=== PATIENT | female | born 1935 | race Caucasian/White ===

== ENCOUNTER 2018-03-08 02:13 | Inpatient (IN) | payer OTHER ==
[~2018-03-08] VITALS: Ht 162.6 cm; Wt 71.2 kg
[~2018-03-08 02:13] MED LIST: AMLODIPINE BESYL5 M1 PO; BYSTOLIC10 M1 PO; CALTRATE 600 +1 EACH PO; DIOVAN160 MG PO; LEVOXYL75 MCG PO; SPIRIVA18 MCG INH; VITAMIN D1000 UNIT PO
--- NOTE | 2018-03-08 13:00 | Operative Report ---
Operative/Inv Procedure Report Surgery Date: 03/08/18 Name of Procedure: Robotic repair of incarcerated incisional hernia with 8 x [address] mesh Pre-Operative Diagnosis: Incarcerated incisional hernia Post-Operative Diagnosis: Same, multiple defects Estimated Blood Loss: none Surgeon/Glass Curvature Gauger: Madeleine CARRANZA,Morteza Hernandez PA-C Anesthesia: general endotracheal tube, block IV Fluids: 1100 mL crystalloid Implants: 8 x [address] mesh Drains: None Specimens: None Complications: None Condition: Excellent extubated to PACU Operative Indication: Karyna is an 82-year-old female who had a prior small bowel resection and a subsequent exploratory laparotomy for an SBO through the same incision and developed progressive bulging and discomfort there. CT showed a bowel containing 5 cm x 5 cm hernia with a mild diastases she presents for an elective robotic repair. Operative/Procedure Note Note: Patient taken to the operating room placed on the operating table supine position. Her hernia had been marked in the preop holding area. Following an awake timeout she underwent an uneventful induction of general endotracheal anesthesia had bilateral tap block performed had Venodyne boots in place, I'll rolled sheet behind her left flank and the bed flexed. Right arm was tucked and the left arm out to her side. The abdomen that was then prepped widely with DuraPrep and draped in usual sterile fashion including Ioban. She received IV Kefzol prior to skin incision and then local anesthetic was infiltrated in the course of the planned incision which was left upper quadrant subcostally. This incision was carried down to the external oblique aponeurosis and incised along the course of the fibers exposing the internal oblique which had a much better fascia on it which was then opened along its fibers to expose the thin transversus abdominis which was then opened to expose the thin transversalis which was carefully opened to gain entry into the peritoneal cavity. Stay sutures were used on the external oblique to hold the eventual port in place and a finger sweep revealed there were some adhesions medially but none laterally or superiorly or inferiorly so I was able to place and it aerocele port 12 mm and achieve and pneumoperitoneum. 8 mm 30 scope was utilized and one could see the adhesions that were palpable medially but laterally again the space was open so we placed two 8 mm working ports under direct vision laterally on the left side after for training local anesthetic. The most inferior was at the level of the ASIS while the third port was detention between the 2. The XI robot was then docked and fenestrated bipolar placed in the left hand while on the right hand a monopolar pavan was placed. Began by taking down adhesions which were extensive but mostly thin and filmy. Working medially were able to delineate the midline hernia defect which had small bowel within it as predicted by CT scan defect size was 5 x 5 cm. Small bowel was easily reduced and sharp dissection and the surrounding margin of the defect to the right side also freed of attachments of some mesentery and omentum. This revealed a second satellite defect just superior to the main defect about a centimeter in size. The falciform was then dissected off of the anterior abdominal wall for 5 cm cephalad to the superior most defect. Inferiorly at about the level of the umbilicus there were multiple defects first and of about 5 cm. All of this lysis of adhesions took about an hour and added to the time and complexity of the case warranting a 22 modifier. There was really no fat pad inferiorly or surrounding the defect other than the falciform superiorly. The margin of the fascia at the hernia edge was circumferentially incised with the monopolar pavan to make a fresh fascial edge. The rash was then closed in a running fashion using 0 the lock permanent suture. As was started approximately 3 cm cephalad to the superior most defect and the pressure lowered down to 8 mmHg to achieve a tension-free closure Now an 8 x [address] mesh was selected and placed into the space. It was then secured circumferentially with 2-0 V LOC suture absorbable. 2-0 Tycron sutures were then used at the 4 Compass points clips had been placed around the margin of the mesh for later CT identification. I pulled some of the falciform ligament up and out over the superior portion of the mesh covering about 1/8 of its surface and secured it there with a 0 Vicryl running suture. The robot was then undocked and the ports removed under direct vision with no bleeding. Fascia was closed in layered fashion with 0 Vicryl [id number] sutures beginning on the transversus muscle layer including the peritoneum, the internal oblique separately with 2 with 2 [id number] sutures and then the external oblique with a running 0 Vicryl closure. 3-0 Vicryl was used on the subcutaneous space followed by 4-0 Monocryl running subcuticular skin closure. Steri-Strips 4 x 4 and OpSite were placed. Abdominal binder was ordered. Patient tolerated the procedure well taken to the recovery room in satisfactory condition extubated all sponge and needle counts Swiss correct 2 completion of the case.
[2018-03-08 14:45] VITALS: BP 108/72
--- NOTE | 2018-03-08 16:58 | Surg Short-stay <48hrs Dis Sum ---
Visit Information Visit Dates Admission Date: 03/08/18 Discharge Date: 03/18/2018 Surgical Short Stay DC Summary Admission Diagnosis: Incarcerated incisional hernia Final Diagnosis: 1. same as above, s/p robotic repair of incarcerated incisional hernia with 8 x [address] mesh 2. SBO due to incarcerated port site hernia s/p open repair of incarcerated port site hernia with VentrioST 8 cm IPOM mesh Procedure(s): Surgery Date: 03/08/18 Name of Procedure: Robotic repair of incarcerated incisional hernia with 8 x [address] mesh Surgery Date: 03/14/18 Name of Procedure: Open repair of incarcerated port site hernia with VentrioST 8 cm IPOM mesh Summary/Significant Findings: Electively scheduled robotic repair of incarcerated incisional hernia with 8 x [address] mesh on 03/08/18 by , for an incarcerated incisional hernia. ERAS protocol followed. Hospital course complicated by SBO due to incarcerated port site hernia. Returned to the OR on 03/14/18 for an emergent open repair of incarcerated port site hernia with VentrioST 8 cm [address] mesh with Dr. Salvador. Tolerated procedure well and was transferred to the surgical floor in stable condition. Diet was advanced with return of bowel function. At the time of hospital discharge, vital signs were stable, patient was voiding spontaneously and pain was controlled with oral analgesics. Condition at Discharge: stable Discharge Disposition: home health services Discharge instructions provided to patient/family: Yes Post discharge follow-up plan: 1-2 week follow up with Dr. Salvador Copies to: Shannon CARRANZA,Hernandez Cunningham
--- NOTE | 2018-03-08 17:00 | Patient Discharge Instructions ---
Discharge Instructions General Discharge Information You were seen/treated for: Incarcerated incisional hernia You had these procedures: Surgery Date: 03/08/18 Name of Procedure: Robotic repair of incarcerated incisional hernia with 8 x [address] mesh Watch for these problems: fever>101.3, increased pain, redness/swelling/drainage, dizziness, shortness of breath, chest pains No bath, but you may shower: Yes Other wound care: ok to shower. keep incisions clean & dry. Diet Continue normal diet: Yes Recommended Diet: Regular Activity Full Activity/No Limits: No Activity Self Limited: Yes Pounds, do NOT lift more than: 10 Other activity limits: no heavy lifting. no strenuous activity. Acute Coronary Syndrome Inclusion Criteria At DC or during hospital stay patient has or had the following: ACS DIAGNOSIS No Discharge Core Measures Meds if any: Prescribed or Continued at Discharge Meds if any: NOT Prescribed or Continued at Discharge Congestive Heart Failure Inclusion Criteria At DC or during hospital stay patient has or had the following: CHF DIAGNOSIS No Discharge Core Measures Meds if any: Prescribed or Continued at Discharge Meds if any: NOT Prescribed or Continued at Discharge Cerebrovascular accident Inclusion Criteria At DC or during hospital stay patient has or had the following: CVA/TIA Diagnosis No Discharge Core Measures Meds if any: Prescribed or Continued at Discharge Meds if any: NOT Prescribed or Continued at Discharge Venous thromboembolism Inclusion Criteria VTE Diagnosis No VTE Type NONE VTE Confirmed by (Test) NONE Discharge Core Measures - Per Current guidelines, there needs to be overlap - treatment for the first 5 days of Warfarin therapy. - If discharged on Warfarin prior to 5 days of - overlap therapy, the patient will need to be - assessed for post discharge needs including - *Post discharge parental anticoagulation - *Warfarin and/or parental anticoagulation education - *Follow up date to check INR post discharge At least 5 days overlap therapy as Inpatient No Meds if any: Prescribed or Continued at Discharge Note: Overlap Therapy is Warfarin and Anticoagulant Meds if any: NOT Prescribed or Continued at Discharge
[2018-03-08] MEDS ORDERED: PERCOCET 5-3251 EACH PO (17:01)
--- NOTE | 2018-03-08 17:26 | PN- General Surgery ---
Subjective Subjective: POST-OP NOTE No complaints. Reports some abdominal discomfort. No nausea. Tolerating sips of clears. Not yet out of bed. Denies dizziness. No shortness of breath. No chest pains. Due to void this evening by 9pm. Objective Vital Signs and I&Os Vital Signs Date Time Temp Pulse Resp B/P B/P Pulse O2 O2 Flow FiO2 Mean Ox Delivery Rate 03/08 1634 Nasal 3.0L Cannula 03/08 1445 96 Nasal 2.0L Cannula 03/08 1445 97.8 74 18 108/72 96 Nasal 2.0L Cannula Intake & Output 03/08 1600 03/08 0800 03/08 0000 03/07 1600 03/07 0800 03/07 0000 Intake Total Output Total Balance Patient 157 lb 150 lb Weight Physical Exam: General - alert & oriented. comfortable. no acute distress. Face with expected puffiness (she was positioned in trendelenburg x 4 hours) Lungs - clear Cardiac - s1s2. reg Abomen - binder in place. dressings c/d/i. no drains noted. Extremities - warm bilaterally. no c/c/e. calves soft and nontender b/l. Current Medications: Current Medications Sig/Wanda Start time Last Medication Dose Route Stop Time Status Admin Acetaminophen 650 MG Q6P PRN 03/08 1515 AC PO Amlodipine Besylate 5 MG DAILY 03/09 09 AC PO Cholecalciferol 1,000 IU DAILY 03/09 09 AC PO Dextrose/Sodium 1,000 ML .[id number] 03/08 1515 AC Chloride IV Diazepam 2 MG ONCE ONE 03/08 1415 DC PO 03/08 1416 Diazepam 2 MG TID PRN 03/08 1300 AC PO Fentanyl Citrate 250 MCG .STK-MED ONE 03/08 0730 DC IM 03/08 0731 Heparin Sodium 5,000 UNIT Q8 03/08 1400 AC (Porcine) SC Levothyroxine Sodium 0.075 MG DAILY AC 03/09 07 AC PO Losartan Potassium 50 MG DAILY 03/09 09 AC PO Morphine Sulfate 2 MG Q2P PRN 03/08 1515 AC IV Morphine Sulfate 0 .STK-MED ONE 03/08 1347 DC .ROUTE Nebivolol 10 MG DAILY 03/09 09 AC PO Ondansetron HCl 4 MG Q6P PRN 03/08 1515 AC IV Oxycodone HCl 5 MG Q4-6 PRN PRN 03/08 1515 AC PO Promethazine HCl 12.5 MG Q6P PRN 03/08 1515 AC IV 03/15 1259 Tiotropium [place] 1 PUF DAILY 03/09 0900 AC INH Assessment/Plan Assessment/Plan This 82 year old female with hx htn is POD#0 s/p robotic repair of incarcerated incisional hernia with 8 x [address] mesh, for an incarcerated incisional hernia advance diet as tolerated pain control as ordered oob as tolerated IST, wean 02 as able hep sc - dvt ppx home meds ordered 23hr observation status, with expected discharge home tomorrow will d/w Core Measures Venous Thromboembolism VTE Risk Factors Surgery No Mechanical VTE Prophylaxis d/t N/A MechProphylax Ordered No VTE Pharm Prophylaxis d/t NA PharmProphylax ordered
[2018-03-08 21:47] VITALS: BP 116/64
[2018-03-09 02:00] VITALS: BP 132/70
[2018-03-09 06:00] VITALS: BP 128/68
[2018-03-09 10:42] LABS: ABSOLUTE BASOPHIL COUNT 0 /CUMM (0.0-0.2); ABSOLUTE EOSINOPHIL COUNT 0.1 /CUMM (0.0-0.7); ABSOLUTE GRANULOCYTE CT 8.1 /CUMM (1.4-6.5); ABSOLUTE LYMPH COUNT 1.8 /CUMM (1.2-3.4); ABSOLUTE MONOCYTE COUNT 0.5 /CUMM (0.10-0.60); BASOPHIL % 0.2 % (0.0-2.0); GRANULOCYTE % 77.2 % (42.2-75.2); HEMATOCRIT 36.2 % (37-47); MEAN CORPUSCULAR HGB 32.9 PG (27.0-31.0); MEAN CORPUSCULAR HGB CONC 34.1 G/DL (33.0-37.0); MEAN CORPUSCULAR VOLUME 96.7 FL (81.0-99.0); MEAN PLATELET VOLUME 6.2 FL (7.4-10.4); PLATELET COUNT 337 /CUMM (130-400); RBC DISTRIBUTION WIDTH 13.1 % (11.5-14.5); RED BLOOD CELL CT 3.75 /CUMM (4.20-5.40); WHITE BLOOD CELL COUNT 10.4 /CUMM (4.8-10.8)
--- NOTE | 2018-03-09 11:24 | PN- General Surgery ---
See Addendum Subjective Subjective: 82-year-old female status post robotic incisional hernia repair with mesh. He is postop day #1 she complains of sore throat fullness in her neck and moderate facial edema after her surgery. I clearly related to her position in the operating room. Denies any chest pain shortness of breath or difficulty swallowing. He has had some nausea however has not vomited. Review of Systems: And is alert and oriented sitting up right in bed. HEENT no posterior pharynx edema Base with moderate periorbital edema and generalized swelling Supple nontender with active range of motion is some subcutaneous emphysema noted Chest is clear to auscultation symmetric without rales rhonchi or wheeze Abdomen is rounded with distention portal sites are clean dry and intact there is tenderness throughout Bilateral lower extremities are free of edema and calves are soft bilaterally Admission Lab Results I reviewed the following labs: Laboratory Tests 03/09 0915 Chemistry Sodium (137 - 145 mmol/L) 127 L Potassium (3.5 - 5.1 mmol/L) 4.1 Chloride (98 - 107 mmol/L) 94 L Carbon Dioxide (22 - 30 mmol/L) 24 Anion Gap (5 - 16) 9 BUN (7 - 17 mg/dL) 14 Creatinine (0.5 - 1.0 mg/dL) 1.1 H Estimated GFR (>60 ml/min) 48 L BUN/Creatinine Ratio (7 - 25 %) 12.7 Hematology CBC w Diff NO MAN DIFF REQ WBC (4.8 - 10.8 /CUMM) 10.4 RBC (4.20 - 5.40 /CUMM) 3.75 L Hgb (12.0 - 16.0 G/DL) 12.4 Hct (37 - 47 %) 36.2 L MCV (81.0 - 99.0 FL) 96.7 MCH (27.0 - 31.0 PG) 32.9 H MCHC (33.0 - 37.0 G/DL) 34.1 RDW (11.5 - 14.5 %) 13.1 Plt Count (130 - 400 /CUMM) 337 MPV (7.4 - 10.4 FL) 6.2 L Gran % (42.2 - 75.2 %) 77.2 H Lymphocytes % (20.5 - 51.1 %) 17.3 L Monocytes % (1.7 - 9.3 %) 4.3 Eosinophils % (0 - 5 %) 1.0 Basophils % (0.0 - 2.0 %) 0.2 Absolute Granulocytes (1.4 - 6.5 /CUMM) 8.1 H Absolute Lymphocytes (1.2 - 3.4 /CUMM) 1.8 Absolute Monocytes (0.10 - 0.60 /CUMM) 0.5 Absolute Eosinophils (0.0 - 0.7 /CUMM) 0.1 Absolute Basophils (0.0 - 0.2 /CUMM) 0 Objective Vital Signs and I&Os Vital Signs Date Time Temp Pulse Resp B/P B/P Pulse O2 O2 Flow FiO2 Mean Ox Delivery Rate 03/09 09 85 130/72 03/09 0918 85 18 130/72 03/09 0918 85 130/72 03/09 0800 96 Nasal 1.0L Cannula 03/09 0600 97.8 87 18 128/68 97 03/09 0200 98.2 84 20 132/70 96 03/09 0000 94 Nasal 1.0L Cannula 03/08 2147 97.7 61 20 116/64 94 Nasal 2.0L Cannula 03/08 1731 4.0 03/08 1634 Nasal 3.0L Cannula 03/08 1500 95 Nasal 2.0L Cannula 03/08 1445 96 Nasal 2.0L Cannula 03/08 1445 97.8 74 18 108/72 96 Nasal 2.0L Cannula Intake & Output 03/09 1600 03/09 0800 03/09 0000 03/08 1600 03/08 0800 03/08 0000 Intake Total 420 1400 Output Total 650 0 Balance -378 254 3709 Intake, IV 300 800 Intake, Oral 120 600 Number 0 Bowel Movements Output, Urine 650 0 Patient 157 lb 157 lb Weight Assessment/Plan Assessment/Plan Assessment and plan postop day #[id number] female with moderate facial edema after having an elective robotic incisional hernia repair. She does have a sore throat with facial edema there is evidence of subcutaneous emphysema noted on exam we will wait a chest x-ray currently she is tolerating by mouth's and feels comfortable. She will be out of bed to chair is on heparin subcutaneous for DVT prophylaxis
[2018-03-09 14:00] VITALS: BP 126/70
--- NOTE | 2018-03-09 15:16 | RADIOLOGY REPORT ---
EXAMINATION: XR PORTABLE CHEST CLINICAL INFORMATION: Subcutaneous emphysema. Postop. COMPARISON: None TECHNIQUE: Portable frontal view of the chest was obtained. 2:30 PM FINDINGS: There is extensive subcutaneous emphysema. This limits assessment of the chest including for pneumothorax and pneumomediastinum. No acute change of the chest otherwise seen. Lungs appear to be clear. No significant pulmonary vascular congestion. The cardiac and mediastinal contours are normal. There are calcifications of aorta. No acute osseous abnormality. Orthopedic anchor in the right humeral head. IMPRESSION: Extensive subcutaneous emphysema of the chest.
[2018-03-09 22:38] VITALS: BP 138/69
[2018-03-10 06:44] VITALS: BP 146/72
--- NOTE | 2018-03-10 08:50 | PN- General Surgery ---
Yari Cardenas 03/10/18 0845: Subjective Subjective: Seen this morning still lying in bed she had 2 episodes of vomiting this morning and was uncomfortable overnight. She still has abdominal distention generalized discomfort. Patient reports not passing gas. No fevers or chills and her facial swelling has diminished. Objective Vital Signs and I&Os Vital Signs Date Time Temp Pulse Resp B/P B/P Pulse O2 O2 Flow FiO2 Mean Ox Delivery Rate 03/10 0644 98.3 93 18 146/72 94 03/10 0000 94 Nasal 1.0L Cannula 03/09 2238 98.1 86 18 138/69 95 Nasal 2.0L Cannula 03/09 1600 96 Nasal 1.0L Cannula 03/09 1400 98.0 80 18 126/70 96 Nasal 1.0L Cannula 03/09 0918 85 130/72 03/09 0918 85 18 130/72 03/09 0918 85 130/72 Intake & Output 03/10 1600 03/10 0800 03/10 0000 03/09 1600 03/09 0800 03/09 0000 Intake Total 720 1097 1080 420 Output Total 160 300 500 650 Balance 560 797 580 -650 420 Intake, IV 600 497 600 300 Intake, Oral 120 600 480 120 Number 0 0 Bowel Movements Output, 160 Emesis Output, Urine 300 500 650 Patient 157 lb Weight Physical Exam: patient is lying in bed abdominal binder is in place she is experiencing symptoms of nausea Chest is clear to auscultation symmetric without rales rhonchi or wheeze Is regular rhythm without murmurs rubs gallops Diminished distended portal sites are clean dry and intact He has generalized abdominal pain Bilateral lower extremities Are soft bilaterally distal pulses are intact. Admission Lab Results I reviewed the following labs: Laboratory Tests 03/09 915 Chemistry Sodium (137 - 145 mmol/L) 127 L Potassium (3.5 - 5.1 mmol/L) 4.1 Chloride (98 - 107 mmol/L) 94 L Carbon Dioxide (22 - 30 mmol/L) 24 Anion Gap (5 - 16) 9 BUN (7 - 17 mg/dL) 14 Creatinine (0.5 - 1.0 mg/dL) 1.1 H Estimated GFR (>60 ml/min) 48 L BUN/Creatinine Ratio (7 - 25 %) 12.7 Hematology CBC w Diff NO MAN DIFF REQ WBC (4.8 - 10.8 /CUMM) 10.4 RBC (4.20 - 5.40 /CUMM) 3.75 L Hgb (12.0 - 16.0 G/DL) 12.4 Hct (37 - 47 %) 36.2 L MCV (81.0 - 99.0 FL) 96.7 MCH (27.0 - 31.0 PG) 32.9 H MCHC (33.0 - 37.0 G/DL) 34.1 RDW (11.5 - 14.5 %) 13.1 Plt Count (130 - 400 /CUMM) 337 MPV (7.4 - 10.4 FL) 6.2 L Gran % (42.2 - 75.2 %) 77.2 H Lymphocytes % (20.5 - 51.1 %) 17.3 L Monocytes % (1.7 - 9.3 %) 4.3 Eosinophils % (0 - 5 %) 1.0 Basophils % (0.0 - 2.0 %) 0.2 Absolute Granulocytes (1.4 - 6.5 /CUMM) 8.1 H Absolute Lymphocytes (1.2 - 3.4 /CUMM) 1.8 Absolute Monocytes (0.10 - 0.60 /CUMM) 0.5 Absolute Eosinophils (0.0 - 0.7 /CUMM) 0.1 Absolute Basophils (0.0 - 0.2 /CUMM) 0 Assessment/Plan Assessment/Plan Postoperative day #2 after robotic incisional hernia repair with mesh. DVT prophylaxis she is on heparin subcutaneous Subcutaneous emphysema is resolving Nausea and vomiting postop likely related to ileus abdomial film ordered and she will remain on ice chips. I've also ordered additional nausea medication she will be on Tylenol and no heavy narcotics she is on a bowel regime. Out of bed to chair and ambulation with assistance. Core Measures Venous Thromboembolism VTE Risk Factors Surgery No Mechanical VTE Prophylaxis d/t N/A MechProphylax Ordered No VTE Pharm Prophylaxis d/t NA PharmProphylax ordered Morteza Salvador MD 03/10/18 1403: Attending MD Review Statement Attending Statement Attending Assessment/Plan: N and V s flatus. Crepitus better. Suspect ileus. Hasnt been OOB yet. AXR planned. If N/V continues may need NGtube but hopefully manageable w zofran and OOB and minimizing narcotics.
[2018-03-10 14:54] VITALS: BP 145/90
--- NOTE | 2018-03-10 16:00 | RADIOLOGY REPORT ---
EXAMINATION: XR ABDOMEN CLINICAL INDICATION: Abdominal pain and nausea. COMPARISON: CT abdomen and pelvis dated to. TECHNIQUE: AP view of the abdomen. FINDINGS: Imaging limited due to overlapping dressing material, and the rightmost abdomen is excluded from the [id number]. The stomach is distended. There multiple dilated small bowel loops. There is a relative paucity of gas within the colon. Gas is identified, however, the level of the rectum. Abdominal and pelvic surgical clips are seen. No acute osseous abnormality is seen. There has been a prior left hip arthroplasty. There is no acute osseous abnormality. IMPRESSION: Findings are consistent with a distal small bowel obstruction versus adynamic ileus. Evaluation is significantly limited, as detailed. Consider imaging follow-up to resolution.
[2018-03-10 21:39] VITALS: BP 124/82
[2018-03-11 06:59] VITALS: BP 136/74
--- NOTE | 2018-03-11 07:51 | PN- General Surgery ---
See Addendum Subjective Subjective: No events overnight. Patient states to not be feeling well this am. Admits to ongoing nausea, only able to tolerate minimal sips of clears. Admits to small amount of emesis this am. Denies any abdominal pain, not taking any narcotics. Denies any fevers, chills, chest pain, or SOB. Voiding freely. Denies passing flatus. Objective Vital Signs and I&Os Vital Signs Date Time Temp Pulse Resp B/P B/P Pulse O2 O2 Flow FiO2 Mean Ox Delivery Rate 03/11 0659 97.9 94 18 136/74 95 03/11 0000 92 Nasal 1.0L Cannula 03/10 2139 98.5 100 18 124/82 92 03/10 1600 94 Nasal 1.0L Cannula 03/10 1454 98.3 97 18 145/90 97 Room Air 03/10 1041 84 130/72 03/10 1040 84 18 130/72 03/10 0800 94 Nasal 1.0L Cannula Intake & Output 03/11 0800 03/11 0000 03/10 1600 03/10 0800 03/10 0000 03/09 1600 Intake Total 720 530 228 589 1593 1080 Output Total 600 30 700 160 300 500 Balance 120 500 -40 560 797 580 Intake, IV 600 310 600 600 497 600 Intake, Oral 120 220 60 120 600 480 Number 0 0 Bowel Movements Output, 30 300 160 Emesis Output, Urine 600 0 400 300 500 Physical Exam: Afebrile, VSS. Cardiac: RRR Pulmonary: CTAB, crepitus improved. Abdominal: Incisions c/d/i. + hypoactive BS. Softly distended, minimal incisional tenderness to palpation. No rebound or guarding. Non peritoneal. Assessment/Plan Assessment/Plan A/P: 82 y/o female POD # 3 s/p robotic incisional hernia repair with mesh complicated by post operative ileus. Tolerating minimal sips of clears but with ongoing nausea. No flatus. - Continue clears as tolerated this am - Continue to limit narcotics - Talked with patient about importance of getting OOB and ambulating - Encourage IS - Antiemetics prn nausea - Home medications ordered - Follow up am labs - DVT ppx - HSQ - will d/w Dr. Salvador Core Measures Venous Thromboembolism VTE Risk Factors Surgery No Mechanical VTE Prophylaxis d/t N/A MechProphylax Ordered No VTE Pharm Prophylaxis d/t NA PharmProphylax ordered
[2018-03-11 08:24] LABS: ABSOLUTE BASOPHIL COUNT 0 /CUMM (0.0-0.2); ABSOLUTE EOSINOPHIL COUNT 0.1 /CUMM (0.0-0.7); ABSOLUTE GRANULOCYTE CT 10.7 /CUMM (1.4-6.5); ABSOLUTE LYMPH COUNT 1.4 /CUMM (1.2-3.4); ABSOLUTE MONOCYTE COUNT 0.7 /CUMM (0.10-0.60); BASOPHIL % 0.2 % (0.0-2.0); EOSINOPHIL % 1.1 % (0-5); GRANULOCYTE % 82.8 % (42.2-75.2); HEMATOCRIT 39.5 % (37-47); MEAN CORPUSCULAR HGB 33.7 PG (27.0-31.0); MEAN CORPUSCULAR VOLUME 96.5 FL (81.0-99.0); MEAN PLATELET VOLUME 6.6 FL (7.4-10.4); PLATELET COUNT 390 /CUMM (130-400); RBC DISTRIBUTION WIDTH 12.7 % (11.5-14.5); RED BLOOD CELL CT 4.09 /CUMM (4.20-5.40); WHITE BLOOD CELL COUNT 12.9 /CUMM (4.8-10.8)
[2018-03-11 15:12] VITALS: BP 148/78
[2018-03-11 21:33] VITALS: BP 138/70
[2018-03-12 06:12] VITALS: BP 138/86
--- NOTE | 2018-03-12 08:08 | PN- General Surgery ---
See Addendum Subjective Subjective: Patient states she can barely tolerate ice chips, she reports nausea with clears. She denies passing flatus, still reports having crepitus, which has been receeding, per the patient. She reports her face still feels puffy. Pain is controlled. She offers no other complaints. Objective Vital Signs and I&Os Vital Signs Date Time Temp Pulse Resp B/P B/P Pulse O2 O2 Flow FiO2 Mean Ox Delivery Rate 03/12 0815 90 138/86 03/12 0813 90 138/86 03/12 0812 90 138/86 03/12 0612 99.0 90 22 138/86 96 Nasal 2.0L Cannula 03/12 0034 94 Nasal 2.0L Cannula 03/12 0000 94 Nasal 1.0L Cannula 03/11 2133 98.2 93 18 138/70 93 Nasal 2.0L Cannula 03/11 1512 98.1 92 18 148/78 95 Nasal Cannula 03/11 1511 92 148/78 03/11 1510 92 148/78 Intake & Output 03/12 1600 03/12 0800 03/12 0000 03/11 1600 03/11 0800 03/11 0000 Intake Total 1130 225 100 720 530 Output Total 300 900 70 600 30 Balance 830 -675 30 120 500 Intake, IV 650 225 600 310 Intake, Oral 480 100 120 220 Number 0 Bowel Movements Output, 70 30 Emesis Output, Urine 300 900 600 0 Physical Exam: Gen - resting comfortably in nad Cardiac - S1S2, RRR Lungs - CTAB, crepitus noted on anterior aspect extendeding to her face, right shoulder and down her left arm Abdominal - Softly distended, incisions c/d/i, faint BS, appropriately tender sandi-incisional tenderness no rebound or guarding Ext - alps in place, no edema or calf tenderness Current Medications: Current Medications Sig/Wanda Start time Last Medication Dose Route Stop Time Status Admin Acetaminophen 1,000 MG Q6P PRN 03/10 900 AC 03/10 N/A 1 UNIT IV 0933 Amlodipine Besylate 5 MG DAILY 03/09 900 AC 03/12 PO 0813 Calcium Carbonate 500 MG DAILY PRN 03/09 0330 AC 03/09 PO 0440 Cholecalciferol 1,000 IU DAILY 03/09 900 AC 03/12 PO 0814 Dextrose/Sodium 1,000 ML Q13H 03/11 1100 AC 03/11 Chloride IV 2242 Dextrose/Sodium 1,000 ML .[id number] 03/08 1515 DC 03/11 Chloride IV 0605 Diazepam 2 MG TID PRN 03/08 1300 AC PO Diphenhydramine HCl 25 MG .STK-MED ONE 03/11 2115 DC PO 03/11 2116 Diphenhydramine HCl 25 MG AT BEDTIME PRN 03/11 1445 AC 03/11 PO 211 Heparin Sodium 5,000 UNIT Q8 03/08 1400 AC 03/12 (Porcine) SC 0519 Levothyroxine Sodium 0.075 MG DAILY AC 03/09 0700 AC 03/12 PO 0519 Losartan Potassium 50 MG DAILY 03/09 0900 AC 03/12 PO 0812 Morphine Sulfate 2 MG Q4-6 PRN PRN 03/08 1730 AC IV Morphine Sulfate 2 MG Q2P PRN 03/08 1515 AC IV Nebivolol 10 MG DAILY 03/09 0900 AC 03/12 PO 0815 Ondansetron HCl 4 MG .STK-MED ONE 03/11 2119 DC IM 03/11 2120 Ondansetron HCl 4 MG Q6P PRN 03/08 1515 AC 03/11 IV 2121 Oxycodone HCl 5 MG Q4-6 PRN PRN 03/08 1515 AC PO Patient Medication 1 ED ONE ONE 03/11 1500 DC 03/11 Teaching ED 03/11 1501 1510 Promethazine HCl 12.5 MG Q6P PRN 03/08 1515 AC 03/12 IV 03/15 1259 0205 Tiotropium Jewett 1 PUF DAILY 03/09 0900 AC 03/12 INH 0813 Results Last 48 Hours of Labs: Laboratory Tests 03/12 03/11 0743 0706 Chemistry Sodium (137 - 145 mmol/L) 129 L 126 L Potassium (3.5 - 5.1 mmol/L) 3.9 4.0 Chloride (98 - 107 mmol/L) 97 L 92 L Carbon Dioxide (22 - 30 mmol/L) 23 26 Anion Gap (5 - 16) 9 7 BUN (7 - 17 mg/dL) 10 Creatinine (0.5 - 1.0 mg/dL) 0.8 Estimated GFR (>60 ml/min) > 60 BUN/Creatinine Ratio (7 - 25 %) 12.5 Hematology CBC w Diff NO MAN DIFF REQ NO MAN DIFF REQ WBC (4.8 - 10.8 /CUMM) 8.7 12.9 H RBC (4.20 - 5.40 /CUMM) 4.20 4.09 L Hgb (12.0 - 16.0 G/DL) 13.6 13.8 Hct (37 - 47 %) 40.7 39.5 MCV (81.0 - 99.0 FL) 97.1 96.5 MCH (27.0 - 31.0 PG) 32.3 H 33.7 H MCHC (33.0 - 37.0 G/DL) 33.3 35.0 RDW (11.5 - 14.5 %) 12.7 12.7 Plt Count (130 - 400 /CUMM) 435 H 390 MPV (7.4 - 10.4 FL) 6.4 L 6.6 L Gran % (42.2 - 75.2 %) 66.3 82.8 H Lymphocytes % (20.5 - 51.1 %) 19.3 L 10.7 L Monocytes % (1.7 - 9.3 %) 11.2 H 5.2 Eosinophils % (0 - 5 %) 2.8 1.1 Basophils % (0.0 - 2.0 %) 0.4 0.2 Absolute Granulocytes (1.4 - 6.5 /CUMM) 5.8 10.7 H Absolute Lymphocytes (1.2 - 3.4 /CUMM) 1.7 1.4 Absolute Monocytes (0.10 - 0.60 /CUMM) 1.0 H 0.7 H Absolute Eosinophils (0.0 - 0.7 /CUMM) 0.2 0.1 Absolute Basophils (0.0 - 0.2 /CUMM) 0 0 Assessment/Plan Assessment/Plan 82 F POD 4 s/p robotic incisional hernia repair with mesh complicated by post operative ileus, no return of bowel function and crepitus, improving Cont sips/ice as tolerated, IVF Pain regimen, limit narcotics Antiemetics prn Home meds on board DVT ppx - hsq Follow up AXR Encourage IS oob ambulation Will d/w Dr. Salvador Core Measures Venous Thromboembolism VTE Risk Factors Surgery No Mechanical VTE Prophylaxis d/t N/A MechProphylax Ordered No VTE Pharm Prophylaxis d/t NA PharmProphylax ordered
[2018-03-12 08:25] LABS: ABSOLUTE BASOPHIL COUNT 0 /CUMM (0.0-0.2); ABSOLUTE EOSINOPHIL COUNT 0.2 /CUMM (0.0-0.7); ABSOLUTE GRANULOCYTE CT 5.8 /CUMM (1.4-6.5); ABSOLUTE LYMPH COUNT 1.7 /CUMM (1.2-3.4); BASOPHIL % 0.4 % (0.0-2.0); EOSINOPHIL % 2.8 % (0-5); GRANULOCYTE % 66.3 % (42.2-75.2); HEMATOCRIT 40.7 % (37-47); MEAN CORPUSCULAR HGB 32.3 PG (27.0-31.0); MEAN CORPUSCULAR HGB CONC 33.3 G/DL (33.0-37.0); MEAN CORPUSCULAR VOLUME 97.1 FL (81.0-99.0); MEAN PLATELET VOLUME 6.4 FL (7.4-10.4); PLATELET COUNT 435 /CUMM (130-400); RBC DISTRIBUTION WIDTH 12.7 % (11.5-14.5); WHITE BLOOD CELL COUNT 8.7 /CUMM (4.8-10.8)
[2018-03-12 14:00] VITALS: BP 124/80
--- NOTE | 2018-03-12 14:39 | RADIOLOGY REPORT ---
EXAMINATION: XR ABDOMEN CLINICAL INDICATION: Nausea, inability to tolerate diet. Presumptive diagnosis of postoperative ileus. Status post robotic hernia repair with mesh placement 03/08/2018. COMPARISON: [facility] dated 03/10/2018. TECHNIQUE: AP view of the abdomen performed on 2 images. FINDINGS: Again seen is significant gaseous distention of bowel loops in the abdomen, unchanged when compared to the prior exam. Small bowel loops measure up to 8 cm in diameter. There is gas seen down to the rectal level and findings are consistent with clinical impression of postoperative ileus. The colon appears to be decompressed. Extensive emphysematous changes are seen in the overlying soft tissues, similar to the previous exam. On single supine view, the presence of free air is difficult to exclude. There is a curvilinear featureless lucency seen surrounding a mid abdominal loop of bowel, consistent with free air in the abdomen. Portions of a total left hip arthroplasty are imaged. Some kenneth are seen overlying the abdomen and pelvis. Osteopenia is seen with suspicion of compression deformities in the lower thoracic and upper lumbar spine. Atherosclerotic calcifications of the aortic bifurcation and iliofemoral vessels is noted. IMPRESSION: 1. Abnormal gaseous distention of small bowel loops in the mid abdomen is seen, unchanged from prior exam. There is free air in the abdomen along with extensive subcutaneous emphysema seen in the soft tissues. Findings may be explained by postoperative ileus and expected free air in a recent postoperative situation. However, close clinical correlation is requested. Given the degree of small bowel distention, the patient is at risk for small bowel perforation. 2. Extensive subcutaneous emphysema again noted, consistent with postoperative complication. Extensive subcutaneous emphysema is also seen on portable chest x-ray from 03/09/2018. This critical result was discussed with SYED Hernandez 03/12/2018, 2:30 PM and it was ascertained that the content and urgency of this report was understood at the time of direct communication.
[2018-03-12 22:00] VITALS: BP 120/70
[2018-03-13 06:24] VITALS: BP 152/80
--- NOTE | 2018-03-13 08:04 | PN- General Surgery ---
See Addendum Subjective Subjective: 82-year-old female status post robotic incisional hernia repair with mesh is postop day #5. She is very sleepy this morning but arousable. Her night was unremarkable with the NG tube putting out approximately 750 ML's. No bowel sounds yet and no flatus pain is controlled on current regime Review of Systems: No fevers or chills no wound drainage no shortness of breath or chest pain Objective Vital Signs and I&Os Vital Signs Date Time Temp Pulse Resp B/P B/P Pulse O2 O2 Flow FiO2 Mean Ox Delivery Rate 03/13 0624 98.8 84 20 152/80 97 05/ 0000 94 Nasal 1.0L Cannula 03/12 2200 98.6 82 18 120/70 97 Nasal 2.0L Cannula 03/12 1400 98.4 85 20 124/80 93 Nasal 1.0L Cannula 03/12 0815 90 138/86 03/12 0813 90 138/86 03/12 0812 90 138/86 Intake & Output 03/13 1600 03/13 0800 03/13 0000 03/12 1600 03/12 0800 03/12 0000 Intake Total 840 60 695 1130 225 Output Total 689 021 5323 300 900 Balance 440 -290 -1055 830 -675 Intake, IV 600 575 650 225 Intake, Oral 240 60 120 480 Number 0 Bowel Movements Output, 011 184 9182 Gastric Drainage Output, Urine 250 300 900 On physical examination she still has a moderate amount of facial edema the subcutaneous emphysema is diminishing. Neck is supple neck with no airway issues Chest is clear to auscultation symmetric without rales rhonchi or wheeze Heart is regular rate and rhythm without murmurs rubs gallops Abdomen is rounded with distention and generalized soreness no localized tenderness no bowel sounds heard Bilateral lower extremities are without calf pain or edema Assessment/Plan Assessment/Plan 82-year-old female postop day 5 status post robotic incisional hernia repair with mass with a past medical history significant for hypertension hypothyroidism COPD and hyperlipidemia now with ileus postoperatively. NG tube is in place still with moderate outputs of 750 ML's overnight. As of now her bowels are not progressing. We will continue her on NG tube suction allowing her to have some ice chips. Out of bed to chair. She is on heparin for DVT prophylaxis. We will hold most narcotics at this time to facilitate early bowel function return Core Measures Venous Thromboembolism VTE Risk Factors Surgery No Mechanical VTE Prophylaxis d/t N/A MechProphylax Ordered No VTE Pharm Prophylaxis d/t NA PharmProphylax ordered
[2018-03-13 14:55] VITALS: BP 118/72
[2018-03-13 22:16] VITALS: BP 122/68
[2018-03-14 06:39] VITALS: BP 104/58
--- NOTE | 2018-03-14 07:46 | PN- General Surgery ---
See Addendum Subjective Subjective: Patient states she slept well overnight, 2 episodes of pain, which have resolved. Denies passing flatus or moving her bowels. She reports crepitus is improving per the patient. She denies nausea or vomiting. She offers no other complaints. Objective Vital Signs and I&Os Vital Signs Date Time Temp Pulse Resp B/P B/P Pulse O2 O2 Flow FiO2 Mean Ox Delivery Rate 03/14 0639 97.7 77 20 104/58 93 Nasal 2.0L Cannula 03/14 0000 Nasal 1.0L Cannula 03/13 2216 98.4 75 20 122/68 94 Nasal Cannula 03/13 1600 96 Nasal 1.0L Cannula 03/13 1455 97.9 83 20 118/72 95 Nasal 2.0L Cannula 03/13 1000 84 152/80 03/13 1000 84 152/80 03/13 1000 84 152/80 03/13 0800 95 Nasal 1.0L Cannula Intake & Output 03/14 0800 / 0000 03/13 1600 / 0800 / 0000 03/12 1600 Intake Total 520 935 840 60 695 Output Total 1200 1450 678 018 0395 Balance -680 -515 440 -290 -1055 Intake, IV 400 575 600 575 Intake, Oral 120 360 240 60 120 Number 0 0 0 Bowel Movements Output, 1200 1000 224 790 0553 Gastric Drainage Output, Urine 450 250 Patient 157 lb Weight Physical Exam: Gen - resting comfortably in nad HEENT - NGT in place with bilious material, 1600 cc in last shift Cardiac - S1S2, RRR Lungs - CTAB, crepitus noted on anterior aspect extendeding to her face, right shoulder and down her left arm, improving Abdominal - Softly distended, incisions c/d/i, absent bs, appropriately tender sandi-incisional tenderness no rebound or guarding Ext - alps in place, no edema or calf tenderness Assessment/Plan Assessment/Plan 82 F POD 6 s/p robotic incisional hernia repair with mesh complicated by post operative ileus, no return of bowel function and crepitus, improving Bowel rest, NGT, IVF Pain regimen, limit narcotics Antiemetics prn Home meds on board DVT ppx - hsq Follow up AXR, labs Encourage IS oob ambulation Will d/w Dr. Salvador Core Measures Venous Thromboembolism VTE Risk Factors Surgery No Mechanical VTE Prophylaxis d/t N/A MechProphylax Ordered No VTE Pharm Prophylaxis d/t NA PharmProphylax ordered
[2018-03-14 09:44] LABS: ABSOLUTE BASOPHIL COUNT 0 /CUMM (0.0-0.2); ABSOLUTE EOSINOPHIL COUNT 0.2 /CUMM (0.0-0.7); ABSOLUTE GRANULOCYTE CT 3.9 /CUMM (1.4-6.5); ABSOLUTE LYMPH COUNT 1.4 /CUMM (1.2-3.4); ABSOLUTE MONOCYTE COUNT 1.4 /CUMM (0.10-0.60); BASOPHIL % 0.3 % (0.0-2.0); EOSINOPHIL % 3.5 % (0-5); GRANULOCYTE % 56.5 % (42.2-75.2); HEMATOCRIT 38.1 % (37-47); MEAN CORPUSCULAR HGB 32.5 PG (27.0-31.0); MEAN CORPUSCULAR HGB CONC 33.5 G/DL (33.0-37.0); MEAN CORPUSCULAR VOLUME 97.3 FL (81.0-99.0); MEAN PLATELET VOLUME 6.8 FL (7.4-10.4); PLATELET COUNT 399 /CUMM (130-400); RBC DISTRIBUTION WIDTH 13.3 % (11.5-14.5); RED BLOOD CELL CT 3.92 /CUMM (4.20-5.40)
--- NOTE | 2018-03-14 13:24 | CT SCAN REPORT ---
EXAMINATION: CT ABDOMEN AND PELVIS WITH ORAL CONTRAST ONLY CLINICAL INFORMATION: Nausea and vomiting with question of ileus versus small bowel. COMPARISON: [facility] 03/12/[address] abdomen and pelvis from [facility] dated 01/03/2018. TECHNIQUE: Multidetector volumetric imaging was performed from the superior aspect of the liver through the pubic symphysis following administration of oral contrast. Sagittal and coronal reformatted images were obtained on the technologist's workstation. DLP: 405.41 mGy-cm. FINDINGS: LUNG BASES: Since the previous study, bilateral small pleural effusions have developed, right greater than left. LIVER, GALLBLADDER, AND BILIARY TREE: The liver is normal in size, shape, and attenuation. No focal hepatic lesion or biliary ductal dilatation is present. Once again seen are gallstones layering in the gallbladder. PANCREAS: Unremarkable. SPLEEN: Unremarkable. ADRENAL GLANDS: Unremarkable. KIDNEYS AND URETERS: The kidneys are normal in size, shape, and attenuation. No hydronephrosis, hydroureter, or calculi seen. Calcification in left renal hilar region appears to be vascular. Small 1 cm right lower pole renal cyst. No perinephric stranding. BLADDER: Unremarkable. GASTROINTESTINAL TRACT AND ABDOMINAL WALL: There is small bowel obstruction present with an associated left lower quadrant new hernia which has appeared since the previous study. There has been interval repair of an incisional hernia midabdomen. In that region, some surgical clips are seen and a small rounded collection of air is present. Extensive subcutaneous emphysema is seen involving the chest wall and the entire lower abdominal wall. I am told by the physicians taking care of her that this was present immediately postop from a port site and has been improving clinically. This is the first CT scan postop to show this. In the abdominal wall, a new hernia is present. This contains small bowel loop. The loops prior to entering this hernia are markedly dilated consistent with small bowel obstruction, with loops measuring up to 6 cm in size. The loop exiting this is completely decompressed indicative of an obstructing hernia (see CT series #3 image 460/760). The colon is completely decompressed. LYMPH NODES: Normal. VASCULAR: Marked aortoiliac calcifications are noted. PELVIC VISCERA: No abnormal mass seen. OSSEOUS STRUCTURES: Left hip replacement present. Degenerative changes in the spine. IMPRESSION: 1. Interval repair of incisional midline hernia with new obstructing hernia left lower quadrant. 2. Extensive subcutaneous emphysema that I am told has been present ever since the patient's operation clinically and is improving. 3. Incidental note made of gallstones and other incidental findings described above. This critical result was discussed with Dr. Morteza Salvador at 12:15 on the day the exam and it was ascertained that the content and urgency of the report was understood at the time of direct communication.
[2018-03-14 15:00] VITALS: BP 108/64
--- NOTE | 2018-03-14 16:42 | Operative Report ---
Operative/Inv Procedure Report Surgery Date: 03/14/18 Name of Procedure: Open repair of incarcerated port site hernia with VentrioST 8 cm IPOM mesh Pre-Operative Diagnosis: Incarcerated port site hernia with small bowel obstruction Post-Operative Diagnosis: Same Estimated Blood Loss: scant (none) Surgeon/Metrology Specialist: Madeleine CARRANZA,Morteza Hernandez PA-C Anesthesia: general endotracheal tube IV Fluids: 1100 mL crystalloid Implants: VentrtioST 8 cm mesh Drains: Abdullahi catheter. NG tube as preoperative Specimens: None Complications: None Condition: Stable good to PACU extubated Operative Indication: Karyna is an 82-year-old female who 6 days ago underwent a robotic repair of incarcerated incisional hernia with onlay mesh. 3 portals were used on the left side, the superiormost was closed on the other 2 were 8 mm and no fascial closure performed. On postop day 2 she began with nausea and vomiting presumed to be ileus but this persisted and an abdominal x-ray suggested possible SBO. An NG tube was placed with high output and a CT done this morning showed left lower quadrant port site hernia with small bowel through it and an SBO with transition zone at the port site hernia Operative/Procedure Note Note: Patient's taken to the operating room placed on the operating table supine position. Following an awake timeout she underwent induction of general endotracheal anesthesia uneventfully. Venodyne boots were in place arms were out to the side NG tube was in place and a Abdullahi catheter was placed. She received Kefzol IV prior skin incision and then the abdomen was then prepped widely with DuraPrep and draped in usual sterile fashion including Ioban. We plan the incision based on the CT scan mapping off the ASIS and umbilicus and made a transverse incision in the left lower quadrant after infiltrating local anesthetic. This was superior-medial to the lowermost 8 mm port site. We carried the incision down with the cautery through subcutaneous tissue to the external oblique. We did not encounter any bowel in the subcutaneous space. At this point became clear this was a spigelian-type herniation with all of the bowel below the external oblique not penetrating through the external oblique defect. The external light was then incised along its fibers revealing the underlying bowel. The external oblique was retracted and the bowel freed from minimal adhesions using mostly blunt dissection in the space. One small area of bowel may have been touched transiently by the tip of the Bovie so I oversewed this with 3-0 silk Lembert sutures 3 just to be sure. I could appreciate the fascial defect and get my finger in alongside the bowel sweeping it circumferentially revealing there were no other adhesions. The defect was 4 cm and clearly had been enlarged over the 8 mm port site that was used most likely by some torque on the port during the procedure. I was able to reduce the bowel back through the defect enlarging it just slightly laterally to make this go easier. With the bowel now fully back intraperitoneal I placed an [address] mesh intraperitoneal in an IPOM fashion and then secured the tabs to the fascia of the transversus and internal oblique 2-0 Maxon. The tabs were cut in the [place] fascia closed in distinct layers with 0 Vicryl suture beginning with the peritoneum and transversus as the first layer, the internal oblique as a second layer being careful not to injure the ilioinguinal nerve which we did not see in this exposure. The external oblique was then closed with running 0 Vicryl. The subcutaneous space was reapproximated with interrupted 3-0 Vicryl sutures and the skin closed with kenneth. 4 x 4 and OpSite were placed followed by the abdominal binder. Patient tolerated the procedure well was taken to the recovery room extubated in stable condition all sponge needle counts Maori correct 2 completion of the case. Abdullahi was left in place. 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
[2018-03-14 18:49] VITALS: BP 118/64
--- NOTE | 2018-03-14 19:59 | PN- General Surgery ---
Subjective Subjective: Patient reports just recieving pain medication for abdominal pain. She states she prefers valium for pain. Reports using her incentive spirometry. States she is thirsty, but does not have an appetite for food. Denies n/v, passing flatus or moving her bowels. Offers no other complaints. Objective Vital Signs and I&Os Vital Signs Date Time Temp Pulse Resp B/P B/P Pulse O2 O2 Flow FiO2 Mean Ox Delivery Rate 03/14 1849 98.1 66 18 118/64 95 Nasal 3.0L Cannula 03/14 1500 98.0 79 18 108/64 94 Room Air 03/14 0903 97.7 77 20 104/58 / 0902 97.7 77 20 104/58 / 0902 97.7 77 20 104/58 / 0639 97.7 77 20 104/58 93 Nasal 2.0L Cannula 03/14 0000 Nasal 1.0L Cannula 03/13 2216 98.4 75 20 122/68 94 Nasal Cannula Intake & Output 03/14 1600 03/14 0800 03/14 0000 03/13 1600 03/13 0800 03/13 0000 Intake Total 1425 600 520 935 840 60 Output Total 1650 1600 1200 1450 400 350 Balance -225 -1000 -680 -515 440 -290 Intake, IV 525 600 400 575 600 Intake, Oral 120 360 240 60 Intake, Other 900 Number 0 0 Bowel Movements Output, 1650 1600 1200 1000 400 350 Gastric Drainage Output, Urine 450 Patient 157 lb Weight Physical Exam: Gen - resting comfortably in nad HEENT - NGT in place with bilious material Cardiac - S1S2, RRR Lungs - CTAB, crepitus appreciated on anterior aspect extending to her face, right shoulder and down her left arm, appears to be improving Abdominal - abdominal binder in place, softly distended, left mid-lower quadrant dressing c/d/i incisions c/d/i, absent bs, appropriately tender sandi-incisional tenderness no rebound or guarding - tse with concentrated urine Ext - alps in place, no edema or calf tenderness Assessment/Plan Assessment/Plan 82 F POD 6 s/p robotic incisional hernia repair with mesh complicated by sbo now POD 0 s/p incarcerated port site hernia repair with mesh, recovering well with expected postop pain Keep NPO on IVF w/ 20 KCl NGT to LCWS Pain regimen, limit narcotics Antiemetics prn Home meds on board DVT ppx - hsq, alps Monitor I&Os Encourage IS, oob ambulation Labs in am Likely d/c tse in am Dressing change POD 2 Core Measures Venous Thromboembolism VTE Risk Factors Surgery No Mechanical VTE Prophylaxis d/t N/A MechProphylax Ordered No VTE Pharm Prophylaxis d/t NA PharmProphylax ordered
[2018-03-14 22:46] VITALS: BP 130/70
[2018-03-15 07:06] VITALS: BP 136/68
--- NOTE | 2018-03-15 07:30 | PN- General Surgery ---
Surgical Brief Attending Note Brief Attending Note: Patient states feeling better Status post repair of port site hernia yesterday Would keep nasogastric tube today DC Abdullahi catheter today Patient must be out of bed and ambulating We will remove the nasogastric tube once patient starts passing flatus
--- NOTE | 2018-03-15 07:47 | PN- General Surgery ---
Subjective Subjective: Patient doing well this am. Pain is well controlled. Denies any n/v around the ngt. No flatus or BM. Using IS. Tse in place. On and feels a little sob but no cp/cough. Due to ambulate. No other issues or complaints. Objective Vital Signs and I&Os Vital Signs Date Time Temp Pulse Resp B/P B/P Pulse O2 O2 Flow FiO2 Mean Ox Delivery Rate 03/15 07 98.0 73 20 136/68 99 03/15 0000 Nasal 3.0L Cannula 03/14 2246 98.6 68 20 130/70 97 Nasal 3.0L Cannula 03/14 1849 98.1 66 18 118/64 95 Nasal 3.0L Cannula 03/14 1500 98.0 79 18 108/64 94 Room Air 03/14 0903 97.7 77 20 104/58 / 0902 97.7 77 20 104/58 03/14 0902 97.7 77 20 104/58 Intake & Output 03/15 0800 03/15 0000 03/14 1600 03/14 0800 03/14 0000 03/13 1600 Intake Total 375 1425 600 520 935 Output Total 50 300 1650 1600 1200 1450 Balance -50 75 -225 -1000 -680 -515 Intake, IV 375 525 600 400 575 Intake, Oral 120 360 Intake, Other 900 Number 2 0 0 Bowel Movements Output, 1650 1600 1200 1000 Gastric Drainage Output, Urine 50 300 450 Patient 157 lb Weight Physical Exam: General: A, A, NAD Abdomen: Soft, mild-mod distention, appropriately ttp, incisions c/d/i with glue in place, LLQ dsg c/d/i w/o any strikethrough Skin: Sub Q emphysema to chest/shoulders Extremities: No clubbing, cyanosis or edema Current Medications: Current Medications Sig/Wanda Start time Last Medication Dose Route Stop Time Status Admin Acetaminophen 1,000 MG .STK-MED ONE 03/14 1457 DC IV 03/14 1458 Acetaminophen 1,000 MG .STK-MED ONE 03/14 1432 DC IV 03/14 1433 Acetaminophen 1,000 MG Q6P PRN 03/10 09 AC 03/10 N/A 1 UNIT IV 0933 Amlodipine Besylate 5 MG DAILY 03/09 09 AC 03/14 PO 0902 Calcium Carbonate 500 MG DAILY PRN 03/09 0330 AC 03/09 PO 0440 Cholecalciferol 1,000 IU DAILY 03/09 0900 AC 03/14 PO 09 Dexamethasone 4 MG .STK-MED ONE 03/14 1458 DC IM 03/14 1459 Dextrose/Sodium 1,000 ML Q13H 03/11 1100 DC 03/13 Chloride IV 2043 Diazepam 2 MG TID PRN 03/14 1700 AC 03/14 PO 211 Diazepam 5 MG TIDPRN PRN 03/14 1645 DC IV Diazepam 2 MG TID PRN 03/08 1300 DC 03/13 PO 205 Diphenhydramine HCl 25 MG AT BEDTIME PRN 03/12 2130 AC 03/12 PO 214 Fentanyl Citrate 200 MCG .STK-MED ONE 03/14 1457 DC IM 03/14 1458 Fentanyl Citrate 100 MCG .STK-MED ONE 03/14 1432 DC IM 03/14 1433 Heparin Sodium 5,000 UNIT Q8 03/08 1400 AC 03/15 (Porcine) SC 0554 Hydromorphone HCl 2 MG .STK-MED ONE 03/14 1717 DC IM 03/14 1718 Hydromorphone HCl 2 MG .STK-MED ONE 03/14 1707 DC IM 03/14 1708 Hydromorphone HCl 2 MG .STK-MED ONE 03/14 1651 DC IM 03/14 1652 Hydromorphone HCl 2 MG .STK-MED ONE 03/14 1432 DC IM 03/14 1433 Levothyroxine Sodium 0.075 MG DAILY AC 03/09 0700 AC 03/15 PO 0554 Lidocaine 5 ML .STK-MED ONE 03/14 1433 DC IV 03/14 1434 Losartan Potassium 50 MG DAILY 03/09 0900 AC 03/14 PO 0902 Midazolam HCl 2 MG .STK-MED ONE 03/14 1433 DC IM 03/14 1434 Morphine Sulfate 2 MG Q4-6 PRN PRN 03/08 1730 AC IV Morphine Sulfate 2 MG Q2P PRN 03/08 1515 AC IV Nebivolol 10 MG DAILY 03/09 0900 AC 03/14 PO 0903 Ondansetron HCl 4 MG .STK-MED ONE 03/14 1458 DC IM 03/14 1459 Ondansetron HCl 4 MG Q6P PRN 03/08 1515 AC 03/11 IV 2121 Oxycodone HCl 5 MG Q4-6 PRN PRN 03/08 1515 DC PO Potassium Chloride 20 MEQ Q8H 03/14 1645 AC 03/15 Sodium Chloride 1,000 ML IV 0222 Potassium Chloride 20 MEQ ONCE ONE 03/14 1030 DC 03/14 Dextrose/Sodium 1,000 ML IV 03/14 1709 1204 Chloride Potassium Chloride 20 MEQ ONCE ONE 03/14 1015 CAN IV 03/14 1016 Potassium Chloride 20 MEQ ONCE ONE 03/14 1015 CAN IV 03/14 1016 Promethazine HCl 12.5 MG Q6P PRN 03/08 1515 AC 03/12 IV 03/22 1043 0205 Tiotropium [place] 1 PUF DAILY 03/09 0900 AC 03/14 INH 1014 Results Last 48 Hours of Labs: Laboratory Tests 03/15 03/14 0700 0814 Chemistry Sodium (137 - 145 mmol/L) Pending 135 L Potassium (3.5 - 5.1 mmol/L) Pending 3.0 L Chloride (98 - 107 mmol/L) Pending 95 L Carbon Dioxide (22 - 30 mmol/L) Pending 32 H Anion Gap (5 - 16) Pending 8 BUN (7 - 17 mg/dL) Pending 13 Creatinine (0.5 - 1.0 mg/dL) Pending 1.0 Estimated GFR (>60 ml/min) 53 L BUN/Creatinine Ratio (7 - 25 %) Pending 13.0 Magnesium Pending Hematology CBC w Diff Pending NO MAN DIFF REQ WBC (4.8 - 10.8 /CUMM) Pending 7.0 RBC (4.20 - 5.40 /CUMM) Pending 3.92 L Hgb (12.0 - 16.0 G/DL) Pending 12.7 Hct (37 - 47 %) Pending 38.1 MCV (81.0 - 99.0 FL) Pending 97.3 MCH (27.0 - 31.0 PG) Pending 32.5 H MCHC (33.0 - 37.0 G/DL) Pending 33.5 RDW (11.5 - 14.5 %) Pending 13.3 Plt Count (130 - 400 /CUMM) Pending 399 MPV (7.4 - 10.4 FL) Pending 6.8 L Gran % (42.2 - 75.2 %) 56.5 Lymphocytes % (20.5 - 51.1 %) 20.1 L Monocytes % (1.7 - 9.3 %) 19.6 H Eosinophils % (0 - 5 %) 3.5 Basophils % (0.0 - 2.0 %) 0.3 Absolute Granulocytes (1.4 - 6.5 /CUMM) 3.9 Absolute Lymphocytes (1.2 - 3.4 /CUMM) 1.4 Absolute Monocytes (0.10 - 0.60 /CUMM) 1.4 H Absolute Eosinophils (0.0 - 0.7 /CUMM) 0.2 Absolute Basophils (0.0 - 0.2 /CUMM) 0 Assessment/Plan Assessment/Plan 82 F POD#7 s/p robotic incisional hernia repair with mesh complicated by post operative ileus, no return of bowel function and crepitus, improving, POD#1 s/p port site hernia repair with mesh Bowel rest, NGT, IVF Pain regimen, limit narcotics Antiemetics prn Home meds on board DVT ppx - hsq Follow up AXR, labs Encourage IS, oob, ambulation Wean O2 PT consult Continue tse for today Will d/w Dr. Salvador Core Measures Venous Thromboembolism VTE Risk Factors Surgery No Mechanical VTE Prophylaxis d/t N/A MechProphylax Ordered No VTE Pharm Prophylaxis d/t NA PharmProphylax ordered
[2018-03-15 09:15] LABS: ABSOLUTE BASOPHIL COUNT 0 /CUMM (0.0-0.2); ABSOLUTE EOSINOPHIL COUNT 0.1 /CUMM (0.0-0.7); ABSOLUTE GRANULOCYTE CT 4.6 /CUMM (1.4-6.5); ABSOLUTE LYMPH COUNT 1.3 /CUMM (1.2-3.4); ABSOLUTE MONOCYTE COUNT 1.4 /CUMM (0.10-0.60); BASOPHIL % 0.2 % (0.0-2.0); EOSINOPHIL % 0.8 % (0-5); GRANULOCYTE % 62.4 % (42.2-75.2); HEMATOCRIT 37.7 % (37-47); MEAN CORPUSCULAR HGB 32.7 PG (27.0-31.0); MEAN CORPUSCULAR HGB CONC 33.3 G/DL (33.0-37.0); MEAN CORPUSCULAR VOLUME 98.2 FL (81.0-99.0); MEAN PLATELET VOLUME 6.3 FL (7.4-10.4); PLATELET COUNT 405 /CUMM (130-400); RBC DISTRIBUTION WIDTH 13.4 % (11.5-14.5); RED BLOOD CELL CT 3.83 /CUMM (4.20-5.40); WHITE BLOOD CELL COUNT 7.4 /CUMM (4.8-10.8)
[2018-03-15 13:50] VITALS: BP 128/72
[2018-03-15 23:01] VITALS: BP 118/68
[2018-03-16 06:23] VITALS: BP 125/70
--- NOTE | 2018-03-16 07:18 | PN- General Surgery ---
Surgical Brief Attending Note Brief Attending Note: Patient appears more comfortable Appropriately tender incisions AVSS Nasogastric tube with high output the patient has been taking ice chips and sips of water Would do nasogastric tube clamping trial today Must be out of bed and ambulate Please DC Abdullahi catheter
[2018-03-16 08:18] LABS: ABSOLUTE BASOPHIL COUNT 0 /CUMM (0.0-0.2); ABSOLUTE EOSINOPHIL COUNT 0.2 /CUMM (0.0-0.7); ABSOLUTE GRANULOCYTE CT 7.3 /CUMM (1.4-6.5); ABSOLUTE LYMPH COUNT 1.6 /CUMM (1.2-3.4); ABSOLUTE MONOCYTE COUNT 1.3 /CUMM (0.10-0.60); BASOPHIL % 0.5 % (0.0-2.0); EOSINOPHIL % 1.8 % (0-5); GRANULOCYTE % 69.8 % (42.2-75.2); HEMATOCRIT 34.7 % (37-47); MEAN CORPUSCULAR HGB 32.3 PG (27.0-31.0); MEAN CORPUSCULAR HGB CONC 32.8 G/DL (33.0-37.0); MEAN CORPUSCULAR VOLUME 98.4 FL (81.0-99.0); MEAN PLATELET VOLUME 6.4 FL (7.4-10.4); PLATELET COUNT 424 /CUMM (130-400); RBC DISTRIBUTION WIDTH 13.7 % (11.5-14.5); RED BLOOD CELL CT 3.53 /CUMM (4.20-5.40); WHITE BLOOD CELL COUNT 10.5 /CUMM (4.8-10.8)
[2018-03-16 13:58] VITALS: BP 118/66
[2018-03-16 23:48] VITALS: BP 133/72
[2018-03-17 06:53] VITALS: BP 126/68
--- NOTE | 2018-03-17 08:32 | PN- General Surgery ---
See Addendum Subjective Subjective: NG tube removed yesterday after clamping trial. Eager to try clears this morning. Denies nausea. Reports passing flatus and +bms. She reports her goal is to go home tomorrow or sunday. Voiding without difficulty s/p tse removal. No dizziness. No shortness of breath. No chest pains. Objective Vital Signs and I&Os Vital Signs Date Time Temp Pulse Resp B/P B/P Pulse O2 O2 Flow FiO2 Mean Ox Delivery Rate 03/17 08 96 Room Air 03/17 0653 98.3 77 18 126/68 93 03/16 2348 98.6 75 20 133/72 93 Room Air 03/16 1358 99.0 78 18 118/66 92 Room Air 03/16 1119 97.9 74 118/88 03/16 1119 74 118/88 03/16 1119 74 118/88 Intake & Output 03/17 1600 03/17 0800 03/17 0000 03/16 1600 03/16 0803/16 0000 Intake Total 2846 557 6481 1000 750 Output Total 100 305 250 225 Balance 1120 435 745 750 525 Intake, IV 1876 110 2144 1000 750 Intake, Oral 120 160 50 0 0 Number 0 2 0 Bowel Movements Output, 5 25 Gastric Drainage Output, Urine 100 300 250 200 Physical Exam: General - alert & oriented x 3. comfortable. no acute distress. Lungs - clear bilaterally. Cardiac - s1s2. reg. Abdomen - abdominal binder in place. soft. left lower dressing removed. incision well approximated with kenneth. no erythema or exudates. sandi-incisional tenderness. Extremities - warm bilaterally. no c/c/e. calves soft and nontender b/l. athrombics in place. Current Medications: Current Medications Sig/Wanda Start time Last Medication Dose Route Stop Time Status Admin Acetaminophen 1,000 MG Q6P PRN 03/10 09 AC 03/15 N/A 1 UNIT IV 1051 Amlodipine Besylate 5 MG DAILY 03/09 09 AC 03/16 PO 1119 Calcium Carbonate 500 MG DAILY PRN 03/09 0330 AC 03/09 PO 0440 Cholecalciferol 1,000 IU DAILY 03/09 900 AC 03/16 PO 1119 Dextrose/Sodium 1,000 ML Q8H 03/15 1145 DC 03/16 Chloride IV 0341 Diazepam 2 MG TID PRN 03/14 1700 AC 03/16 PO 2116 Diphenhydramine HCl 25 MG AT BEDTIME PRN 03/12 2130 AC 03/12 PO 2142 Heparin Sodium 5,000 UNIT Q8 03/08 1400 AC 03/17 (Porcine) SC 0501 Levothyroxine Sodium 0.075 MG DAILY AC 03/09 0700 AC 03/17 PO 0501 Losartan Potassium 50 MG DAILY 03/09 0900 AC 03/16 PO 1119 Morphine Sulfate 2 MG Q4-6 PRN PRN 03/08 1730 AC IV Morphine Sulfate 2 MG Q2P PRN 03/08 1515 AC IV Nebivolol 10 MG DAILY 03/09 0900 AC 03/16 PO 1119 Ondansetron HCl 4 MG Q6P PRN 03/08 1515 AC 03/11 IV 2121 Potassium Chloride 10 MEQ Q1H 03/16 1045 DC 03/16 IV 03/16 1146 1528 Potassium Chloride 20 MEQ Q8H 03/16 1045 AC 03/17 Sodium Chloride 1,000 ML IV 0413 Promethazine HCl 12.5 MG Q6P PRN 03/08 1515 AC 03/12 IV 03/22 1043 0205 Tiotropium [place] 1 PUF DAILY 03/09 0900 AC 03/16 INH 1117 Results Last 48 Hours of Labs: Laboratory Tests 03/17 03/16 03/15 0700 0715 0853 Chemistry Sodium (137 - 145 mmol/L) 137 138 Potassium (3.5 - 5.1 mmol/L) 4.1 3.2 L Chloride (98 - 107 mmol/L) 107 101 Carbon Dioxide (22 - 30 mmol/L) 24 30 Anion Gap (5 - 16) 7 6 BUN (7 - 17 mg/dL) 11 13 Creatinine (0.5 - 1.0 mg/dL) 0.9 0.9 Estimated GFR (>60 ml/min) > 60 > 60 BUN/Creatinine Ratio (7 - 25 %) 12.2 14.4 Magnesium (1.6 - 2.3 mg/dL) 1.9 Hematology CBC w Diff NO MAN DIFF REQ Cancelled WBC (4.8 - 10.8 /CUMM) 10.5 Cancelled RBC (4.20 - 5.40 /CUMM) 3.53 L Cancelled Hgb (12.0 - 16.0 G/DL) 11.4 L Cancelled Hct (37 - 47 %) 34.7 L Cancelled MCV (81.0 - 99.0 FL) 98.4 Cancelled MCH (27.0 - 31.0 PG) 32.3 H Cancelled MCHC (33.0 - 37.0 G/DL) 32.8 L Cancelled RDW (11.5 - 14.5 %) 13.7 Cancelled Plt Count (130 - 400 /CUMM) 424 H Cancelled MPV (7.4 - 10.4 FL) 6.4 L Cancelled Gran % (42.2 - 75.2 %) 69.8 Lymphocytes % (20.5 - 51.1 %) 15.4 L Monocytes % (1.7 - 9.3 %) 12.5 H Eosinophils % (0 - 5 %) 1.8 Basophils % (0.0 - 2.0 %) 0.5 Absolute Granulocytes (1.4 - 6.5 /CUMM) 7.3 H Absolute Lymphocytes (1.2 - 3.4 /CUMM) 1.6 Absolute Monocytes (0.10 - 0.60 /CUMM) 1.3 H Absolute Eosinophils (0.0 - 0.7 /CUMM) 0.2 Absolute Basophils (0.0 - 0.2 /CUMM) 0 Assessment/Plan Assessment/Plan This 82 F POD#9 s/p robotic incisional hernia repair with mesh complicated by port site hernia POD#3 s/p repair of port site hernia with mesh, with resolved ileus trying clear tray this morning for breakfast d/c iv fluids dressing changed, left lower abdomen will need kenneth removed around post-op day#14 abdominal binder as desired oob/ambulation hep sc - dvt ppx f/u labs IST d/c planning, tomorrow vs sunday depending on how she tolerates diet advancement will d/w (covering ) Core Measures Venous Thromboembolism VTE Risk Factors Surgery No Mechanical VTE Prophylaxis d/t N/A MechProphylax Ordered No VTE Pharm Prophylaxis d/t NA PharmProphylax ordered
[2018-03-17 14:55] VITALS: BP 122/60
[2018-03-17 22:04] VITALS: BP 132/80
[2018-03-18 05:58] VITALS: BP 142/75
--- NOTE | 2018-03-18 07:51 | PN- General Surgery ---
See Addendum Subjective Subjective: 82 Y/O FEMALE WITH SLOW IMPROVEMENT AFTER PORT SITE HERNIA REPAIR. SHE IS TOLARATING POs HAS BEEN OUT OF BED TO CHAIR MULTIPLE TIMES. ABDOMINAL PAIN IS MINIMAL BUT SHE STILL HAS SIGNIFICANT BLOATING. SHE HAS FREQUENT RUNNY BMs YESTERDAY AND THIS AM. Review of Systems: NO FEVERS OR CHILLS NO CP OR SOB ABD WITH BLOATING NO PAIN FREQUNT LOOSE STOOLS NO DYSURIA Review of Systems Constitutional: Reports: weakness. Gastrointestinal: Reports: bloating, diarrhea, distention, nausea. Neurological/Psychological: Reports: no symptoms. Hematologic/Endocrine: Reports: bruising. Comments: PATIENT LYING IN BED WITHOUT COMPLAINTS DISCUSSED DISCHARGE PLANES CHEST- CTA, SYMMETRIC WITHOUT RALES RONCHI OR WHEEZE HEART-RRRWITHOUT MRG ABD -ECCYMOSIS RESOLVING, MODERATE DISTENTION PORT SITES CDI WITOUT ECCYMOSIS POS BS, LOOSE NONBLODDY STOOLS CALVES SOFT BILAT, NO EDEMA Objective Vital Signs and I&Os Vital Signs Date Time Temp Pulse Resp B/P B/P Pulse O2 O2 Flow FiO2 Mean Ox Delivery Rate 03/18 0558 98.0 75 20 142/75 95 05/06 2254 98.3 / 2204 74.0 74 20 132/80 95 Room Air 05/ 1455 98.1 78 18 122/60 94 05/06 0857 68 126/78 05/ 0856 68 126/78 05/06 0856 78 126/68 05/06 0800 96 Room Air Intake & Output / 0800 05/07 0000 05/06 1600 05/06 0800 05/06 0000 05/05 1600 Intake Total 200 325 097 5448 535 1050 Output Total 1100 400 100 305 Balance -900 250 912 4391 435 745 Intake, IV 300 4070 041 0295 Intake, Oral 200 950 120 160 50 Number 1 3 0 2 Bowel Movements Output, 5 Gastric Drainage Output, Urine 1100 400 100 300 Assessment/Plan Assessment/Plan 03/08 ROBOTIC INCISIONAL HERNIA WITH MESH 5/3 INCARCERATED PORT SITE HERNIA WITH MESH PATIENT MAKING SLOW PROGRESS WITH DIET -STARTED FULLS LAST NIGHT. NO APPETITE. ADVANCE THIS AM COORDINATE WITH MARKETING PROGRAM COORDINATOR TO D/C THIS EVENING.PATIENT WITH GENERALIZED DECONDITIONING MAY NEED ECF Core Measures Venous Thromboembolism VTE Risk Factors Surgery No Mechanical VTE Prophylaxis d/t N/A MechProphylax Ordered No VTE Pharm Prophylaxis d/t NA PharmProphylax ordered
[2018-03-18 15:27] VITALS: BP 140/78
== END 2018-03-18 16:32 | disposition home health service (06) | DRG 330 ==
LOC: STS 02:13 → PACUH 12:24 → ENRESERV 13:23 → ENTRNSPT 14:32 → 2NB 14:48 → EDTRNSPTSTS 15:15 → EDTRNSPT 15:15 → CMPTRNSPT 15:23 → 2NB 03-10 11:35 → ENTRNSPT 03-14 17:43 → EDTRNSPTSTS 03-14 17:45 → EDTRNSPT 03-14 17:45 → CMPTRNSPT 03-14 18:11 → ENPENDDIS 03-18 14:50 → ENTRNSPT 03-18 16:18 → EDTRNSPTSTS 03-18 16:27 → EDTRNSPT 03-18 16:27 → 2NB 03-18 16:32 → CMPTRNSPT 03-18 16:36
PROVIDERS: Physician Assistant; Physician Assistant Surgical
PROC: 0WUF4JZ Supplement Abdominal Wall with Synthetic Substitute, Percutaneous Endoscopic Approach (ICD-10-PCS; principal; 2018-03-10)
PROC: 8E0W4CZ Robotic Assisted Procedure of Trunk Region, Percutaneous Endoscopic Approach (ICD-10-PCS; 2018-03-10)
PROC: 3E0T3BZ Introduction of Anesthetic Agent into Peripheral Nerves and Plexi, Percutaneous Approach (ICD-10-PCS; 2018-03-10)
PROC: 0DH67UZ Insertion of Feeding Device into Stomach, Via Natural or Artificial Opening (ICD-10-PCS; 2018-03-12)
PROC: 3E0G76Z Introduction of Nutritional Substance into Upper GI, Via Natural or Artificial Opening (ICD-10-PCS; 2018-03-12)
PROC: 0DSB4ZZ Reposition Ileum, Percutaneous Endoscopic Approach (ICD-10-PCS; 2018-03-14)
PROC: 0WUF4JZ Supplement Abdominal Wall with Synthetic Substitute, Percutaneous Endoscopic Approach (ICD-10-PCS; 2018-03-14)
PROC: 3E0T3BZ Introduction of Anesthetic Agent into Peripheral Nerves and Plexi, Percutaneous Approach (ICD-10-PCS; 2018-03-14)
DX: K43.0 Incisional hernia with obstruction, without gangrene (principal); K91.30 Postprocedural intestinal obstruction, unspecified as to partial versus complete; J44.9 Chronic obstructive pulmonary disease, unspecified; T81.89XA Other complications of procedures, not elsewhere classified, initial encounter; E03.9 Hypothyroidism, unspecified; E78.5 Hyperlipidemia, unspecified; Y83.8 Other surgical procedures as the cause of abnormal reaction of the patient, or of later complication, without mention of misadventure at the time of the procedure; Y92.239 Unspecified place in hospital as the place of occurrence of the external cause; I10 Essential (primary) hypertension
CPT/HCPCS: 6040; 36415; 36592; 71045; 74018; 74176; 82436; 87086; 93005; 93010; 97110-GO; 97116-GO; 97161-GP; 97530-GO; C1781; G0378; J0131; J0690; J1100; J1644; J2405; J2550; J3490; J7040; J7042; S5012